=== PATIENT | male | born 1980 | race Caucasian/White ===

== ENCOUNTER → 2018-07-19 | Outpatient (CLI) | payer OTHER ==
--- NOTE | 2018-07-19 14:01 | XR ---
EXAMINATION TYPE: XR facial bones complete DATE OF EXAM: 07/19/2018 HISTORY: R79.89 R51 Forehead pain TECHNIQUE: Three views of the facial bones are submitted. FINDINGS: No evidence for displaced or depressed facial bone fracture. No air-fluid levels within th e sinuses. Soft tissues are radiographically intact. Bilateral MAIL ROOM shunts are noted. IMPRESSION: No evidence for displaced or depressed facial bone fracture.
== END | disposition home or self-care (01) ==
LOC: LABWHC1 12:14
PROVIDERS: ATTEND Family Medicine
DX: R51 Headache (principal); R79.89 Other specified abnormal findings of blood chemistry
CPT/HCPCS: 36415; 70150; 84402; 84403

== ENCOUNTER → 2019-12-29 | Outpatient (CLI) | payer MEDICARE, OTHER ==
[2019-12-29 12:14] LABS: Basophils # (A) 0.1 k/uL (0-0.2); Basophils % (A) 1 %; Eosinophils # (A) 0.3 k/uL (0-0.7); Eosinophils % (A) 3 %; HCT 43.2 % (39.0-53.0); HGB 14.9 gm/dL (13.0-17.5); Lymphocytes # (A) 1.6 k/uL (1.0-4.8); Lymphocytes % (A) 19 %; MCHC 34.5 g/dL (31.0-37.0); Mean Platelet Volume 7.9; Monocytes # (A) 0.5 k/uL (0-1.0); Monocytes % (A) 6 %; Neutrophils # (A) 5.6 k/uL (1.3-7.7); Neutrophils % (A) 69 %; Platelet Count 201 k/uL (150-450); RBC 4.81 m/uL (4.30-5.90); RDW 13.2 % (11.5-15.5); WBC 8.1 k/uL (3.8-10.6)
--- NOTE | 2019-12-29 13:13 | XR ---
EXAMINATION TYPE: XR calcaneus 2V RT DATE OF EXAM: 12/29/2019 COMPARISON: None HISTORY: Nonhealing wound TECHNIQUE: 2 view calcaneus FINDINGS: There is some soft tissue abnormality along the posterior heel pad. Calcaneal cortex on the lateral projection appears normal. No suspicious changes to suggest acute osteomyelitis is evident b y radiograph. Due to the patient's inability to dorsiflex calcaneal views are somewhat limited but gr ossly normal. IMPRESSION: 1. Soft tissue abnormality posterior annual.. 2. No suspicious changes for acute osteomyelitis radiographically apparent on somewhat limited images .
[2019-12-29 14:13] LABS: Erythrocyte Sedimentation Rate 41 mm/hr (0-15)
[2019-12-29 17:25] LABS: African American GFR (CKD) 97.5 (60.0-200.0); Albumin 4.1 g/dL (3.80-4.90); Albumin/Globulin Ratio 1.52 (1.60-3.17); Anion Gap 14.8 mmol/L (4.00-12.00); BUN/Creat Ratio 20.91 Ratio (12.00-20.00); C Reactive Protein 3.7 mg/dL (0.0-0.8); Calcium 9.4 mg/dL (8.7-10.3); Carbon Dioxide 23.2 mmol/L (21.6-31.8); Globulin 2.7 g/dL (1.6-3.3); Non-African American GFR(CKD) 84.1 (60.0-200.0); Total Bilirubin 0.7 mg/dL (0.3-1.2); Total Protein 6.8 g/dL (6.2-8.2)
== END | disposition home or self-care (01) ==
LOC: LABWHC1 11:44
PROVIDERS: ATTEND Thoracic Surgery (Cardiothoracic Vascular Surgery)
DX: M79.89 Other specified soft tissue disorders (principal); L89.612 Pressure ulcer of right heel, stage 2; L97.522 Non-pressure chronic ulcer of other part of left foot with fat layer exposed; B35.3 Tinea pedis
CPT/HCPCS: 36415; 80053; 84134; 85025; 85652; 86140

== ENCOUNTER → 2020-03-30 | Outpatient (CLI) | payer MEDICARE, OTHER ==
[2020-03-30 13:13] LABS: Basophils # (A) 0.1 k/uL (0-0.2); Basophils % (A) 0 %; Eosinophils # (A) 0.3 k/uL (0-0.7); Eosinophils % (A) 3 %; HCT 46.1 % (39.0-53.0); HGB 14.8 gm/dL (13.0-17.5); Hypochromasia Slight; Lymphocytes # (A) 1.2 k/uL (1.0-4.8); Lymphocytes % (A) 11 %; MCH 28.9 pg (25.0-35.0); MCHC 32.1 g/dL (31.0-37.0); Mean Platelet Volume 7.5; Monocytes # (A) 0.7 k/uL (0-1.0); Monocytes % (A) 6 %; Neutrophils # (A) 9.3 k/uL (1.3-7.7); Neutrophils % (A) 80 %; Platelet Count 230 k/uL (150-450); RBC 5.12 m/uL (4.30-5.90); RDW 13.7 % (11.5-15.5); WBC 11.7 k/uL (3.8-10.6)
[2020-03-30 13:22] LABS: Appearance,Urine Cloudy (Clear); Bacteria,Urine Many /hpf; Bilirubin,Urine Negative (Negative); Blood,Urine Small (Negative); Color,Urine Yellow; Glucose,Urine (UA) Negative (Negative); Ketones,Urine 2+ (Negative); Leukocyte Esterase,Urine Large (Negative); Mucus,Urine Rare /hpf; Nitrite,Urine Positive (Negative); PH, Urine 5.5 (5.0-8.0); Protein,Urine 1+ (Negative); RBC,Urine 8 /hpf (0-5); Squamous Epithelial Cell,Urine 5 /hpf (0-4); Urobilinogen,Urine <2.0 mg/dL (<2.0); WBC,Urine >182 /hpf (0-5)
--- NOTE | 2020-03-30 17:27 | XR ---
EXAMINATION TYPE: XR abdomen 1V DATE OF EXAM: 03/30/2020 12:12 PM CLINICAL HISTORY: Abdominal pain for 5 days. History of shunts. TECHNIQUE: Supine image of the abdomen and pelvis obtained. COMPARISON: None. FINDINGS: Ventriculoperitoneal catheter seen coursing over the inferior right chest, right hemiabdome n, crossing to the left abdomen at the level of L4, and joining a coiled loop of catheter over the th e far left lateral abdomen. Ventriculoperitoneal catheter seen coursing over the inferior left chest and left hemiabdomen which is calcified with multiple areas of discontinuity, and joins the coiled lo op of catheter over the far left lateral abdomen. One catheter tip is over the left upper quadrant an d one catheter tip is over the left medial abdomen at the level of T12. Linear serpiginous subtle den sity over the right lateral abdomen likely represents fragment of calcified catheter tubing. There is also incompletely visualized catheter tubing overlying the patient's pelvis. The visualized bowel ga s pattern is nonobstructed. No evidence of large pneumoperitoneum within limits of supine technique. IMPRESSION: 1. Nonobstructive bowel gas pattern. 2. Bilateral ventriculoperitoneal shunts, distally together coiled over the left lateral abdomen. Th ere is calcification and multiple areas of shunt fracturing of the left shunt. Additional findings as above.
[2020-03-30 19:37] LABS: African American GFR (CKD) 123.4 (60.0-200.0); Albumin 4.4 g/dL (3.80-4.90); Albumin/Globulin Ratio 1.1 (1.60-3.17); Anion Gap 9.6 mmol/L (4.00-12.00); BUN/Creat Ratio 21.11 Ratio (12.00-20.00); C Reactive Protein 6.2 mg/dL (0.0-0.8); Calcium 9.4 mg/dL (8.7-10.3); Carbon Dioxide 25.4 mmol/L (21.6-31.8); Non-African American GFR(CKD) 106.5 (60.0-200.0); Potassium 4.2 mmol/L (3.5-5.5); Total Protein 8.4 g/dL (6.2-8.2)
[2020-03-30 21:00] LABS: Hemoglobin A1C 5.2 % (4.0-6.0)
== END | disposition home or self-care (01) ==
LOC: LABWHC1 11:49
PROVIDERS: ATTEND Family Medicine
DX: E11.9 Type 2 diabetes mellitus without complications (principal); R11.0 Nausea; R10.84 Generalized abdominal pain
CPT/HCPCS: 36415; 74018; 80053; 81001; 82150; 83036; 83690; 85025; 86140

== ENCOUNTER → 2020-05-14 | Outpatient (CLI) | payer MEDICARE, OTHER ==
--- NOTE | 2020-05-15 03:37 | MR ---
EXAMINATION TYPE: MR foot RT wo/w con DATE OF EXAM: 05/14/2020 COMPARISON: None HISTORY: Pressure ulcer right heel CONTRAST: Standard multiplanar, multisequence MRI departmental protocol utilizing 9 mL intravenous Gadavist olga olinium contrast. There is diffuse subcutaneous edema around the foot. This is more noticeable in the forefoot. There i s some thinning of the Achilles tendon near the attachment on the posterior calcaneus. This could rel ate to a partial tear. There is a 3 cm x 2 cm area of mixed signal in the plantar aspect of the posterior calcaneus in the s oft tissues. This has a 1 cm low signal component on the STIR images. I see no focal bone destruction . The metatarsals are intact. Tarsal bones are intact. There is mild enhancement of the periphery of the soft tissue lesion. IMPRESSION: Complex mass in the plantar soft tissues of the posterior calcaneus could be a phlegmon. No evidence of focal bone destruction. Deformity of the Achilles tendon at the attachment on the posterior calcan eus could relate to a partial tear. No evidence of osteomyelitis. No fracture. Subcutaneous edema around the foot there is more noticeable in the forefoot.
== END | disposition home or self-care (01) ==
LOC: RADMRIMAIN 21:39
PROVIDERS: ATTEND Nurse Practitioner Family
DX: R22.41 Localized swelling, mass and lump, right lower limb (principal); M21.6X1 Other acquired deformities of right foot
CPT/HCPCS: 73720; A9585

== ENCOUNTER → 2020-06-29 | Outpatient (CLI) | payer MEDICARE, OTHER ==
--- NOTE | 2020-06-29 21:09 | US ---
EXAMINATION TYPE: LOWER EXTREMITY VENOUS INSUFFICIENCY CLINICAL HISTORY: L97.522 NONPRESSURE CHRONIC ULCER OF OTHER PART OF. Pt from wound care; DM; Ulcers B/L legs SIDE PERFORMED: Bilateral 1) Color flow is present and patency is documented in the following vessels. No DVT or SVT is noted as visualized. Common Femoral Vein Deep Femoral Vein Femoral Vein Popliteal Vein Proximal Calf Veins Greater Saph Vein Upper Small Saph Vein 2) There is venous reflux noted at the following venous levels: none 3) Incompetent perforators are noted at these levels: none Left Femoral vein distal not seen due to edema and pt condition. Pt sitting upright due to back pain. No evidence of venous insufficiency seen. IMPRESSION: No evidence of venous reflux or venous thrombosis bilaterally. The distal left femoral vein is obscur ed.
--- NOTE | 2020-06-30 10:25 | P.ARTDOP ---
Arterial Doppler LOWER EXTREMITY ARTERIAL DOPPLER: DATE OF SERVICE: 06/29/2020 Reason for study: Lower extremity ulcer. Doppler waveforms: Multiphasic bilaterally throughout. Pulse volume recording: []. Pressure gradients: None. Ankle-brachial indices: Greater than 1 bilaterally. Toe brachial indices: Greater than 1 bilaterally Impression: Normal study.
== END | disposition home or self-care (01) ==
LOC: RADUSWWP 13:37
PROVIDERS: ATTEND Nurse Practitioner Family
DX: L97.522 Non-pressure chronic ulcer of other part of left foot with fat layer exposed (principal)
CPT/HCPCS: 93922; 93923; 93970

== ENCOUNTER 2021-01-10 13:34 | Emergency (ER) | payer MEDICARE, OTHER ==
[2021-01-10 13:44] VITALS: RESP 18
[2021-01-10] MEDS ORDERED: ACETAMINOPHEN TAB 325 MG TAB PO STA (14:58)
--- NOTE | 2021-01-10 15:03 | ED ---
General Adult HPI - General Source: patient, RN notes reviewed Mode of arrival: wheelchair Limitations: no limitations <Jarocho Diaz - Last Filed: 01/10/21 18:41> <Shilpa Adhikari - Last Filed: 01/11/21 12:47> - General Chief complaint: Nausea/Vomiting/Diarrhea Stated complaint: N/V/D,Fever Time Seen by Provider: 01/10/21 14:49 - History of Present Illness Initial comments: Patient is a 40-year-old male that presents to the emergency department complaining of diarrhea nausea general body aches fatigue and right lower extremity pain. He notes that he does have a wound to his right heel that he goes the wound care clinic for but recentlyhis right leg is starting to get swollen red and tender. He notes the pain is a 3-4 out of 10. The rest of the symptoms started on Sunday he started to experience fevers that come and go nausea and diarrhea and general body aches. He said he can emergency room to get evaluated for possible Covid Haydee's right leg checked out. He was in no apparent distress or pain while sitting up in bed during exam and interview. He denied any chest pain shortness breath headache constipation fatigue chills (Jarocho Diaz) - Related Data Home Medications Medication Instructions Recorded Confirmed Multivitamins, Thera [Multivitamin 1 tab PO DAILY 11/08/18 01/10/21 (formulary)] Testosterone Cypionate 100 mg IM Q14D 11/08/18 01/10/21 [Depo-Testosterone] Ascorbic Acid [Vitamin C] 1,000 mg PO DAILY 01/10/21 01/10/21 Cholecalciferol [Vitamin D3 (25 50 mcg PO DAILY 01/10/21 01/10/21 Mcg = 1000 Iu)] Glimepiride [Amaryl] 2 mg PO BID 01/10/21 01/10/21 Zinc 50 mg PO DAILY 01/10/21 01/10/21 metFORMIN HCL ER [Glucophage Xr] 500 mg PO BID 01/10/21 01/10/21 Previous Rx's Medication Instructions Recorded Cephalexin [Keflex] 500 mg PO Q6HR #40 cap 01/10/21 Sulfamethox-Tmp 800-160Mg [Bactrim 1 each PO Q12HR #20 tab 01/10/21 Ds] Allergies Allergy/AdvReac Type Severity Reaction Status Date / Time Latex, Natural Rubber Allergy Anaphylaxis Verified 01/10/21 16:17 Review of Systems ROS Other: All systems not noted in ROS Statement are negative. <DiazJarocho - Last Filed: 01/10/21 18:41> ROS Other: All systems not noted in ROS Statement are negative. <Shilpa Adhikari - Last Filed: 01/11/21 12:47> ROS Statement: Those systems with pertinent positive or pertinent negative responses have been documented in the HPI. Past Medical History Past Medical History: Cancer, Musculoskeletal Disorder, Neurologic Disorder, Seizure Disorder Additional Past Medical History / Comment(s): spinal bifida. Wound right foot. Testicular cancer-2007 History of Any Multi-Drug Resistant Organisms: None Reported Past Surgical History: Appendectomy Additional Past Surgical History / Comment(s): bilateral hip, back Past Anesthesia/Blood Transfusion Reactions: Motion Sickness Past Psychological History: No Psychological Hx Reported Smoking Status: Never smoker Past Alcohol Use History: None Reported Past Drug Use History: None Reported <DiazGeok - Last Filed: 01/10/21 18:41> General Exam Limitations: no limitations General appearance: alert, in no apparent distress, obese Head exam: Present: atraumatic, normocephalic, normal inspection Eye exam: Present: normal appearance, PERRL, EOMI. Absent: scleral icterus, conjunctival injection, periorbital swelling Neck exam: Present: normal inspection. Absent: tenderness, meningismus, lymphadenopathy Respiratory exam: Present: normal lung sounds bilaterally. Absent: respiratory distress, wheezes, rales, rhonchi, stridor Cardiovascular Exam: Present: regular rate, normal rhythm, normal heart sounds. Absent: systolic murmur, diastolic murmur, rubs, gallop, clicks GI/Abdominal exam: Present: soft, normal bowel sounds. Absent: distended, ten derness, guarding, rebound, rigid Extremities exam: Present: tenderness (Right lower leg). Absent: normal inspection (Lower leg is erythematous, swollen and warm to the touch.), pedal edema, joint swelling, calf tenderness Neurological exam: Present: alert, oriented X3, CN II-XII intact Psychiatric exam: Present: normal affect, normal mood Skin exam: Present: warm, dry, intact, normal color, erythema (Right lower extremity), other (Wound on right heel is covered in a clean dressing.). Absent: rash <Jarocho Diaz - Last Filed: 01/10/21 18:41> Course Vital Signs 01/10/21 01/10/21 13:40 18:40 Temperature 98.7 F 98.9 F Pulse Rate 122 H 102 H Respiratory 18 18 Rate Blood Pressure 122/65 102/60 O2 Sat by Pulse 97 97 Oximetry EKG Findings - EKG Comments: EKG Findings:: Ventricular rate 101 bpm, PA interval 120 ms, QRS duration 90 ms, QT/QTC 326/422 ms, PRT axes 61/40/19. Sinus tachycardia, otherwise normal ECG. <Jarocho Diaz - Last Filed: 01/10/21 18:41> Medical Decision Making - Lab Data Result diagrams: 01/10/21 15:08 01/10/21 15:08 - EKG Data -: EKG Interpreted by Me EKG shows normal: sinus rhythm Rate: tachycardia - Radiology Data Radiology results: report reviewed, image reviewed <Jarocho Diaz - Last Filed: 01/10/21 18:41> - Lab Data Result diagrams: 01/10/21 15:08 01/10/21 15:08 <Shilpa Adhikari - Last Filed: 01/11/21 12:47> - Medical Decision Making 40-year-old male complaining of generalized malaise, nausea, diarrhea and right leg pain. Labs, 1 L normal saline, chest x-ray, ultrasound of the right lower leg, 1000 mg Tylenol ordered. Labs unremarkable. All imaging negative for any acute process. Case discussed with Dr. Adhikari, patient can discharge home. (Jarocho Diaz) I was available for consultation in the emergency department. The history and physical exam were done by the midlevel provider. I was consulted for this patients care. I reviewed the case with the midlevel provider and based on their presentation of the patient, I agree with the assessment, medical decision making and plan of care as documented. Chart was dictated using [employer] dictation software. Attempts were made to correct any dictation errors however some typographical errors may persist. Patient was seen during a national state of emergency due to the Covid-19 pandemic. (Shilpa Adhikari) - Lab Data Lab Results 01/10/21 01/10/2101/10/21 Range/Units 15:08 15:08 15:08 WBC 11.4 H (3.8-10.6) k/uL RBC 5.24 (4.30-5.90) m/uL Hgb 15.3 (13.0-17.5) gm/dL Hct 45.0 (39.0-53.0) % MCV 85.8 (80.0-100.0) fL MCH 29.1 (25.0-35.0) pg MCHC 33.9 (31.0-37.0) g/dL RDW 14.2 (11.5-15.5) % Plt Count 188 (150-450) k/uL MPV 7.3 Neutrophils % 90 % Lymphocytes % 6 % Monocytes % 2 % Eosinophils % 1 % Basophils % 0 % Neutrophils # 10.3 H (1.3-7.7) k/uL Lymphocytes # 0.7 L (1.0-4.8) k/uL Monocytes # 0.3 (0-1.0) k/uL Eosinophils # 0.1 (0-0.7) k/uL Basophils # 0.0 (0-0.2) k/uL PT 9.8 (9.0-12.0) sec INR 0.9 (<1.2) APTT 27.2 (22.0-30.0) sec D-Dimer 1.36 H (<0.60) mg/L FEU Sodium 137 (137-145) mmol/L Potassium 3.9 (3.5-5.1) mmol/L Chloride 101 (98-107) mmol/L Carbon Dioxide 19 L (22-30) mmol/L Anion Gap 17 mmol/L BUN 20 (9-20) mg/dL Creatinine 1.19 (0.66-1.25) mg/dL Est GFR (CKD-EPI)AfAm 88 (>60 ml/min/1.73 sqM) Est GFR (CKD-EPI)NonAf 76 (>60 ml/min/1.73 sqM) Glucose 79 (74-99) mg/dL Plasma Lactic Acid Atul (0.7-2.0) mmol/L Calcium 9.5 (8.4-10.2) mg/dL Magnesium 2.2 (1.6-2.3) mg/dL Ferritin 741.2 H (22.0-322.0) ng/mL Total Bilirubin 1.5 H (0.2-1.3) mg/dL AST 31 (17-59) U/L ALT 25 (4-49) U/L Alkaline Phosphatase 90 (38-126) U/L Lactate Dehydrogenase 708 H (313-618) U/L C-Reactive Protein 39.5 H (<1.0) mg/dL Total Protein 8.1 (6.3-8.2) g/dL Albumin 4.3 (3.5-5.0) g/dL Influenza Type A (PCR) (Not Detectd) Influenza Type B (PCR) (Not Detectd) RSV (PCR) (Not Detectd) SARS-CoV-2 (PCR) (Not Detectd) 01/10/21 01/10/21 Range/Units 15:08 16:35 WBC (3.8-10.6) k/uL RBC (4.30-5.90) m/uL Hgb (13.0-17.5) gm/dL Hct (39.0-53.0) % MCV (80.0-100.0) fL MCH (25.0-35.0) pg MCHC (31.0-37.0) g/dL RDW (11.5-15.5) % Plt Count (150-450) k/uL MPV Neutrophils % % Lymphocytes % % Monocytes % % Eosinophils % % Basophils % % Neutrophils # (1.3-7.7) k/uL Lymphocytes # (1.0-4.8) k/uL Monocytes # (0-1.0) k/uL Eosinophils # (0-0.7) k/uL Basophils # (0-0.2) k/uL PT (9.0-12.0) sec INR (<1.2) APTT (22.0-30.0) sec D-Dimer (<0.60) mg/L FEU Sodium (137-145) mmol/L Potassium (3.5-5.1) mmol/L Chloride (98-107) mmol/L Carbon Dioxide (22-30) mmol/L Anion Gap mmol/L BUN (9-20) mg/dL Creatinine (0.66-1.25) mg/dL Est GFR (CKD-EPI)AfAm (>60 ml/min/1.73 sqM) Est GFR (CKD-EPI)NonAf (>60 ml/min/1.73 sqM) Glucose (74-99) mg/dL Plasma Lactic Acid Atul 1.6 (0.7-2.0) mmol/L Calcium (8.4-10.2) mg/dL Magnesium (1.6-2.3) mg/dL Ferritin (22.0-322.0) ng/mL Total Bilirubin (0.2-1.3) mg/dL AST (17-59) U/L ALT (4-49) U/L Alkaline Phosphatase (38-126) U/L Lactate Dehydrogenase (313-618) U/L C-Reactive Protein (<1.0) mg/dL Total Protein (6.3-8.2) g/dL Albumin (3.5-5.0) g/dL Influenza Type A (PCR) Not Detected (Not Detectd) Influenza Type B (PCR) Not Detected (Not Detectd) RSV (PCR) Not Detected (Not Detectd) SARS-CoV-2 (PCR) Not Detected (Not Detectd) - EKG Data EKG Comments: Ventricular rate 101 bpm, PA interval 120 ms, QRS duration 90 ms, QT/QTC 326/422 ms, PRT axes 61/40/19. Sinus tachycardia, otherwise normal ECG. (Jarocho Diaz) - Radiology Data Ultrasound of the right lower extremity: Negative for DVT Chest x-ray no acute pulmonary process. (Jarocho Diaz) Disposition Is patient prescribed a controlled substance at d/c from ED?: No Time of Disposition: 18:43 <Jarocho Diaz - Last Filed: 01/10/21 18:41> <Shilpa Adhikari - Last Filed: 01/11/21 12:47> Clinical Impression: Upper respiratory tract infection, Cellulitis Disposition: HOME SELF-CARE Condition: Stable Instructions (If sedation given, give patient instructions): Acute Nausea and Vomiting (ED), Acute Diarrhea (ED) Additional Instructions: Please return to the Emergency Department if symptoms worsen or any other concerns. Take antibiotics as prescribed until complete. Follow-up with primary care in 3-5 days. Take [id number] antipyretics for pain and fever control. Increase oral fluids. Prescriptions: Sulfamethox-Tmp 800-160Mg [Bactrim Ds] 1 each PO Q12HR #20 tab Cephalexin [Keflex] 500 mg PO Q6HR #40 cap Referrals: Huey Lopez MD [Primary Care Provider] - 1-2 days
[2021-01-10 15:27] LABS: Basophils % (A) 0 %; Eosinophils # (A) 0.1 k/uL (0-0.7); Eosinophils % (A) 1 %; HGB 15.3 gm/dL (13.0-17.5); Lymphocytes # (A) 0.7 k/uL (1.0-4.8); Lymphocytes % (A) 6 %; MCH 29.1 pg (25.0-35.0); MCHC 33.9 g/dL (31.0-37.0); MCV 85.8 fL (80.0-100.0); Mean Platelet Volume 7.3; Monocytes # (A) 0.3 k/uL (0-1.0); Monocytes % (A) 2 %; Neutrophils # (A) 10.3 k/uL (1.3-7.7); Neutrophils % (A) 90 %; Platelet Count 188 k/uL (150-450); RBC 5.24 m/uL (4.30-5.90); RDW 14.2 % (11.5-15.5); WBC 11.4 k/uL (3.8-10.6)
--- NOTE | 2021-01-10 15:33 | XR ---
EXAMINATION TYPE: XR chest 1V portable DATE OF EXAM: 01/10/2021 COMPARISON: NONE HISTORY: Cough and shortness of breath, Suspected COVID-19 pneumonia TECHNIQUE: Single AP portable frontal upright view of the chest is obtained. FINDINGS: There is mild chronic parenchymal changes along with elevated left hemidiaphragm. There is no suspicious focal air space opacity, pleural effusion, or pneumothorax seen. The cardiac silhouett e size is within normal limits. The osseous structures are intact. Overlying EKG leads. Overlying v ertical oriented catheters could reflect LAUNDR[employer] SUPER[employer]OR shunt catheters or external catheter tubing. IMPRESSION: No acute pulmonary process.
[2021-01-10 15:41] LABS: INR 0.9 (<1.2); Partial Thromboplastin Time 27.2 sec (22.0-30.0); Prothrombin Time 9.8 sec (9.0-12.0)
[2021-01-10 15:50] LABS: Albumin 4.3 g/dL (3.5-5.0); Calcium 9.5 mg/dL (8.4-10.2); D-Dimer 1.36 mg/L FEU (<0.60); Magnesium 2.2 mg/dL (1.6-2.3); Potassium 3.9 mmol/L (3.5-5.1); Total Bilirubin 1.5 mg/dL (0.2-1.3); Total Protein 8.1 g/dL (6.3-8.2)
--- NOTE | 2021-01-10 16:03 | US ---
EXAMINATION TYPE: US venous doppler duplex LE RT DATE OF EXAM: 01/10/2021 3:49 PM COMPARISON: Prior bilateral venous JUNE 29, 2020 CLINICAL HISTORY: pain. Swelling. Redness. Not on blood thinners. SIDE PERFORMED: Right TECHNIQUE: The lower extremity deep venous system is examined utilizing real time linear array sonog jerson with graded compression, doppler sonography and color-flow sonography. VESSELS IMAGED: Common Femoral Vein Deep Femoral Vein Greater Saphenous Vein * Femoral Vein Popliteal Vein Small Saphenous Vein * Proximal Calf Veins (* superficial vessels) Limited visualization due to swelling and patient unable to move legs Right Leg: Negative for DVT Grayscale, color doppler, spectral doppler imaging performed of the deep veins of the right lower ext remity. There is normal flow, compressibility, vascular waveforms. Prominent groin lymph nodes note d towards end of study with preservation of central fatty hilum. IMPRESSION: Suboptimal study without convincing evidence of acute DVT in the right lower extremity.
[2021-01-10 16:40] LABS: C Reactive Protein 39.5 mg/dL (<1.0)
[2021-01-10] MEDS ORDERED: diphenhydrAMINE 50 MG/ML 1 ML VIAL IVP ONE (16:45)
[2021-01-10] MEDS ORDERED: FAMOTIDINE 20 MG/2 ML VIAL IV ONE (16:45)
[2021-01-10] MEDS ORDERED: methylPREDNISolone SOD SUCCI 125 MG/2 ML VIAL IV ONE (16:45)
--- NOTE | 2021-01-10 18:24 | CT ---
EXAMINATION TYPE: CT chest angio for PE DATE OF EXAM: 01/10/2021 COMPARISON: Same-day radiograph. HISTORY: Elevated D dimer CT DLP: 677.7 mGycm Automated exposure control for dose reduction was used. CONTRAST: CT Chest for pulmonary embolism performed with with IV Contrast, patient injected with 100 mL of Isov ue 370. FINDINGS: LUNGS: The lungs are grossly clear, there is no concerning parenchymal mass or nodule identified. T here is no pleural effusion or pneumothorax seen. The tracheobronchial tree is patent. MEDIASTINUM: There is satisfactory enhancement of the pulmonary artery to the level of the central/pr oximal lobar branches. There is no CT evidence for pulmonary embolism. There are no greater than 1 c m hilar or mediastinal lymph nodes. No pericardial effusion is seen. OTHER: Hepatosplenomegaly is seen. IMPRESSION: Limit evaluation for PE. No evidence of central PE. No acute cardiopulmonary abnormality. Hepatosplenomegaly.
[2021-01-10 18:41] VITALS: BP 102/60; PULSE 102; TEMP 98.9
[2021-01-11 10:01] LABS: Ferritin 741.2 ng/mL (22.0-322.0)
== END 2021-01-10 19:02 | disposition home or self-care (01) ==
LOC: EC 13:34
DX: J06.9 Acute upper respiratory infection, unspecified (principal); L03.90 Cellulitis, unspecified; Z90.49 Acquired absence of other specified parts of digestive tract
CPT/HCPCS: 36415; 93005; 85379; 80053; 82728; 83605; 83615; 83735; 85025; 85610; 85730; 86140; 87040; 84145; 87636; 71045; 93971; 71275; 99284; 96374; 96375 ×2; J1200; J2930; Q9967